=== PATIENT | male | born 1990 | race Caucasian/White ===

== ENCOUNTER → 2021-06-27 | Emergency (ER) | payer OTHER ==
[~2021-06-27] VITALS: Ht 165.1 cm; Wt 90.7 kg
[2021-06-27 22:23] VITALS: BP_SYST 155
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
--- NOTE | 2021-06-27 22:38 | NUR ---
Dr Pina examining patient in triage.
[2021-06-27 23:30] VITALS: BP_SYST 145
--- NOTE | 2021-06-27 23:30 | NUR ---
Patient given written and verbal discharge instructions by Dr Pina and verbalizes understanding. ER MD discussed with patient the results and treatment provided. Patient in stable condition. ID arm band removed. No Rx given. Patient educated on pain management and to follow up with PMD. Pain Scale 0/10.
--- NOTE | 2021-06-28 04:04 | NUR ---
Note reione in EDM - 06/28/21 at 0414 by [email or web address] Patient given written and verbal discharge instructions by Dr Pina and verbalizes understanding. ER discussed with patient the results and treatment provided. Patient in stable condition. ID arm band removed. No Rx given. Patient educated on pain management and to follow up with PMD. Pain Scale 0/10.
== END | disposition home or self-care (01) ==
LOC: SED 21:42
DX: Z04.1 Encounter for examination and observation following transport accident (principal); V49.49XA Driver injured in collision with other motor vehicles in traffic accident, initial encounter; Y93.89 Activity, other specified; Y92.89 Other specified places as the place of occurrence of the external cause; Y99.8 Other external cause status
CPT/HCPCS: 99281